=== PATIENT | male | born 1935 | race African-American/Black ===

== ENCOUNTER 2016-11-19 01:08 | Inpatient (IN) | payer MEDICARE, MEDICAID ==
[~2016-11-19] VITALS: Ht 177.8 cm; Wt 79.8 kg
[2016-11-19] MEDS ORDERED: PREDNISONE 20MG TABLET PO STA (01:55)
[2016-11-19] MEDS ORDERED: IPRATROPIUM BROMIDE (0.02%) 0.5MG/2.5ML NEB HHN STA (01:55)
[2016-11-19] MEDS ORDERED: ALBUTEROL (0.083%) 2.5MG/3ML NEB HHN STA (01:55)
[2016-11-19 02:18] LABS: HEMOGLOBIN. 12.9 g/dL (14.0-18.0); MEAN CORPUSCULAR HEMOGLOBIN 27.5 pg (28.0-32.0); MEAN CORPUSCULAR VOLUME 83.5 fL (80.0-94.0); MEAN PLATELET VOLUME 9.4 fl (7.4-10.4); PLATELET 224 x1000/uL (130-400); RED BLOOD CELL COUNT 4.67 mill/uL (4.7-6.1); RED CELL DISTRIBUTION WIDTH 15.2 % (11.6-14.6); WHITE BLOOD COUNT 5.1 x1000/uL (4.5-11.0)
[2016-11-19 02:22] LABS: DIFFERENTIAL COMMENT 1; INR 1.1; PROTHROMBIN TIME 11.8 sec
[2016-11-19 02:34] LABS: ALANINE AMINOTRANSFERASE 18 IU/L (13-61); ALBUMIN 3.4 g/dL (3.4-5.0); ANION GAP 13; CALCIUM 8.6 mg/dL (8.5-10.1); CARBON DIOXIDE 25 mEq/L (21-32); CHLORIDE 108 mEq/L (98-107); INDEX HEMOLYSI 1 (1-3); INDEX ICTERIC 1 (1-4); INDEX LIPEMIC 1 (1-3); NT PRO B-TYPE NATRIURETIC PEP 7418 pg/mL (5-125); TROPONIN I 0.23 ng/mL (0.00-0.04); UREA NITROGEN BLOOD 12 mg/dL (7-21); eGFR > 60 mL/min (>60)
[2016-11-19 02:44] LABS: BG BASE EXCESS -1.4 mmol/L (-2.0-2.0); BG CARBOXYHEMOGLOBIN 0.9 % (0.5-1.5); BG DEOXYHEMOGLOBIN 2.6 % (0.0-5.0); BG FRACTION INSPIRED OXYGEN 28; BG HCO3 ACT 21.4 mmol/L (22.0-26.0); BG METHEMOGLOBIN 0.2 % (0.0-1.5); BG OXYGEN SATURATION 97.4 % (92.0-98.5); BG OXYHEMOGLOBIN 96.3 % (94.0-97.0); BG PCO2 30.5 mmHg (35.0-45.0); BG PH 7.464 (7.350-7.450); BG PO2 91.8 mmHg (75.0-100.0); BG SAMPLE SITE LEFT RADIAL; BG TOTAL HEMOGLOBIN 12.9 g/dL (12.0-18.0); BG VENT MODE NASAL CANNULA
[2016-11-19 05:38] LABS: PLATELET ESTIMATE NORMAL
[2016-11-19 05:40] VITALS: BP 145/96
[2016-11-19 06:00] VITALS: BP 145/96
[2016-11-19] MEDS ORDERED: SIMV20TA6 PO (07:38)
[2016-11-19] MEDS ORDERED: TAMS0.4C31 PO (07:38)
[2016-11-19] MEDS ORDERED: AMLO10TA80 PO (07:38)
[2016-11-19] MEDS ORDERED: METO25TA6 PO (07:38)
[2016-11-19] MEDS ORDERED: CLOP75TA33 PO (07:38)
[2016-11-19] MEDS ORDERED: ASPI-1035 PO (07:38)
[2016-11-19 08:11] VITALS: BP 143/80
[2016-11-19] MEDS: METOPROLOL TARTRATE 25MG TABLET PO SCH (09:00)
[2016-11-19] MEDS: ASPIRIN 81MG EC TABLET PO SCH (09:56)
[2016-11-19] MEDS: CLOPIDOGREL 75MG TABLET PO SCH (09:56)
[2016-11-19] MEDS: AMLODIPINE 10MG TABLET PO SCH (09:56)
[2016-11-19] MEDS: TAMSULOSIN HCL 0.4MG SR CAPSULE PO SCH (09:57)
[2016-11-19 12:00] VITALS: BP 135/100
[2016-11-19] MEDS: FUROSEMIDE 40MG/4ML VIAL IVP SCH (13:12)
[2016-11-19] MEDS: PROMETHAZINE 5 ML/6.25 MG 118ML LIQ PO PRN ×2 (13:18→17:33)
[2016-11-19 16:15] VITALS: BP 126/94
[2016-11-19] MEDS ORDERED: LEVOFLOXACIN 500MG TABLET PO NR (17:00)
[2016-11-19 17:32] LABS: *AMPHETAMINES SCREEN URINE NEGATIVE (NEGATIVE); *BARBITURATES SCREEN URINE NEGATIVE (NEGATIVE); *BENZODIAZEPINES SCREEN URINE NEGATIVE (NEGATIVE); *COCAINE SCREEN URINE PRESUMTIVE POSITIVE (NEGATIVE); CANNABINOID URINE SCREEN NEGATIVE (NEGATIVE); ECSTASY MDMA SCREEN URINE NEGATIVE (NEGATIVE); METHADONE URINE SCREEN NEGATIVE (NEGATIVE); OPIATES URINE SCREEN NEGATIVE (NEGATIVE); PHENCYCLIDINE URINE SCREEN NEGATIVE (NEGATIVE)
[2016-11-19 20:00] VITALS: BP 120/90
[2016-11-19] MEDS ORDERED: ATORVASTATIN CALCIUM 10MG TABLET PO SCH (21:00)
[2016-11-19] MEDS ORDERED: MEDICATION NOT ON FORMULARY EA (Simvastatin 20 MG) PO SCH (21:00)
[2016-11-19 21:15] LABS: TROPONIN I 0.12 ng/mL (0.00-0.04)
[2016-11-19 21:21] LABS: THYROID STIMULATING HORMONE 0.28 uIU/mL (0.36-3.74)
[2016-11-20] VITALS: BP 127/93
[2016-11-20] MEDS: PROMETHAZINE 5 ML/6.25 MG 118ML LIQ PO PRN ×2 (00:16→06:49)
[2016-11-20 04:00] VITALS: BP 146/96
[2016-11-20 08:00] VITALS: BP 129/83
[2016-11-20] MEDS ORDERED: GUAIFENESIN/CODEINE 100-10MG/5ML UDC PO PRN (09:00)
[2016-11-20] MEDS: CLOPIDOGREL 75MG TABLET PO SCH (09:41)
[2016-11-20] MEDS: TAMSULOSIN HCL 0.4MG SR CAPSULE PO SCH (09:45)
[2016-11-20] MEDS: ASPIRIN 81MG EC TABLET PO SCH (09:46)
[2016-11-20] MEDS: AMLODIPINE 10MG TABLET PO SCH (09:47)
[2016-11-20] MEDS: FUROSEMIDE 40MG/4ML VIAL IVP SCH (09:47)
[2016-11-20] MEDS: METOPROLOL TARTRATE 25MG TABLET PO SCH (09:47)
[2016-11-20] MEDS: IPRATROPIUM/ALBUTEROL 0.5-3(2.5)MG/3ML NEB HHN SCH ×2 (09:52→11:42)
[2016-11-20] MEDS ORDERED: LEVOFLOXACIN 500MG TABLET PO SCH (11:00)
[2016-11-20] MEDS ORDERED: LEVOFLOXACIN 500MG PREMIX 100 ML IV SCH (11:00)
[2016-11-20 12:00] VITALS: BP 116/63
[2016-11-20] MEDS ORDERED: IPRATROPIUM/ALBUTEROL 0.5-3(2.5)MG/3ML NEB HHN SCH (13:00)
[2016-11-20 15:44] LABS: BASOPHILS % 1.3 % (0.0-2.0); DIFFERENTIAL COMMENT 0; EOSINOPHILS % 1.6 % (0.0-5.0); HEMOGLOBIN. 12.5 g/dL (14.0-18.0); MEAN CORPUSCULAR HEMOGLOBIN 27.4 pg (28.0-32.0); MEAN CORPUSCULAR HGB CONC 32.8 g/dL (31.0-37.0); MEAN CORPUSCULAR VOLUME 83.3 fL (80.0-94.0); MEAN PLATELET VOLUME 9.5 fl (7.4-10.4); MONOCYTES % 8.6 % (2.0-8.0); NEUTROPHILS % 68.5 % (40.0-76.0); PLATELET 216 x1000/uL (130-400); RED BLOOD CELL COUNT 4.56 mill/uL (4.7-6.1); RED CELL DISTRIBUTION WIDTH 14.7 % (11.6-14.6); WHITE BLOOD COUNT 5.9 x1000/uL (4.5-11.0)
[2016-11-20 16:00] VITALS: BP 124/88
[2016-11-20 16:10] LABS: ALANINE AMINOTRANSFERASE 17 IU/L (13-61); ALBUMIN 3.4 g/dL (3.4-5.0); ANION GAP 13; CARBON DIOXIDE 28 mEq/L (21-32); CHLORIDE 104 mEq/L (98-107); INDEX HEMOLYSI 1 (1-3); INDEX ICTERIC 1 (1-4); INDEX LIPEMIC 1 (1-3); UREA NITROGEN BLOOD 17 mg/dL (7-21); eGFR > 60 mL/min (>60)
[2016-11-20 17:08] VITALS: BP 124/88
== END 2016-11-20 17:25 | disposition home or self-care (01) | DRG 291 ==
LOC: ER 01:09 → 6WST 04:55
PROVIDERS: ADMIT Family Medicine; ATTEND Family Medicine
DX: I11.0 Hypertensive heart disease with heart failure (principal); J18.9 Pneumonia, unspecified organism; E78.5 Hyperlipidemia, unspecified; I25.10 Atherosclerotic heart disease of native coronary artery without angina pectoris; I50.9 Heart failure, unspecified; J44.9 Chronic obstructive pulmonary disease, unspecified; N40.0 Benign prostatic hyperplasia without lower urinary tract symptoms; N42.89 Other specified disorders of prostate; Z79.82 Long term (current) use of aspirin; Z95.0 Presence of cardiac pacemaker; I25.2 Old myocardial infarction; Z95.1 Presence of aortocoronary bypass graft; Z79.899 Other long term (current) drug therapy
CPT/HCPCS: 36415; 36600; 71010; 80053; 80061; 80305; 82375; 82805; 83036; 83605; 83880; 84443; 84484; 85025; 85379; 85610; 87040; 93005; 93306; 97162; 99285; J1940; J1956; J7040; J7512; J7611; J7620; Q0169

== ENCOUNTER 2017-03-04 22:44 | Inpatient (IN) | payer MEDICARE, MEDICAID ==
[~2017-03-04] VITALS: Ht 177.8 cm; Wt 73.5 kg
[~2017-03-04 22:44] MED LIST: AMLO10TA80 PO; ASPI-1158 PO; CLOP75TA33 PO; METO25TA6 PO; SIMV20TA6 PO; TAMS0.4C31 PO
[2017-03-04] MEDS ORDERED: NITROGLYCERIN 0.4MG TABLET SL SL PRN (23:00)
[2017-03-04] MEDS ORDERED: ASPIRIN 81MG TABLET PO ONE (23:00)
[2017-03-04 23:13] LABS: HEMATOCRIT. 38.4 % (42.0-52.0); HEMOGLOBIN. 12.7 g/dL (14.0-18.0); MEAN CORPUSCULAR HEMOGLOBIN 27.7 pg (28.0-32.0); MEAN CORPUSCULAR VOLUME 83.9 fL (80.0-94.0); MEAN PLATELET VOLUME 9.5 fl (7.4-10.4); PLATELET 132 x1000/uL (130-400); RED BLOOD CELL COUNT 4.58 mill/uL (4.7-6.1); RED CELL DISTRIBUTION WIDTH 15.9 % (11.6-14.6)
[2017-03-04 23:20] LABS: INR 1.1; PROTHROMBIN TIME 10.9 sec
[2017-03-04 23:25] LABS: CARBON DIOXIDE 26 mEq/L (21-32); CHLORIDE 108 mEq/L (98-107); TROPONIN I 0.03 ng/mL (0.00-0.04)
[2017-03-04 23:58] LABS: ATYPICAL LYMPHOCYTES 8
[2017-03-05] LABS: PLATELET ESTIMATE SLIGHTLY DECREASED
[2017-03-05] MEDS ORDERED: FUROSEMIDE 40MG/4ML VIAL IVP ONE (00:15)
[2017-03-05] MEDS ORDERED: DOCUSATE SODIUM 100MG CAPSULE PO PRN ×2 (16:15→16:30)
[2017-03-05] MEDS ORDERED: IPRATROPIUM/ALBUTEROL 0.5-3(2.5)MG/3ML NEB INH PRN ×2 (16:15→16:30)
[2017-03-05] MEDS ORDERED: ENOXAPARIN 40MG/0.4ML SYR SUBCUT SCH ×2 (16:15→17:00)
[2017-03-05] MEDS ORDERED: ONDANSETRON HCL 4MG/2ML VIAL IV PRN ×2 (16:15→16:30)
[2017-03-05] MEDS ORDERED: FUROSEMIDE 40MG/4ML VIAL IV SCH (16:15)
[2017-03-05] MEDS ORDERED: ACETAMINOPHEN 325MG TABLET PO PRN ×2 (16:15→16:30)
[2017-03-05] MEDS ORDERED: HYDROCODONE/ACETAMINOPHEN 5/325MG TABLET PO PRN ×2 (16:15→16:30)
[2017-03-05] MEDS: FUROSEMIDE 40MG/4ML VIAL IV SCH (17:00)
[2017-03-05] MEDS ORDERED: METOPROLOL TARTRATE 25MG TABLET PO SCH (17:00)
[2017-03-05] MEDS: METOPROLOL TARTRATE 25MG TABLET PO SCH (20:45)
[2017-03-05] MEDS ORDERED: ATORVASTATIN CALCIUM 10MG TABLET PO SCH (21:00)
[2017-03-05] MEDS ORDERED: MEDICATION NOT ON FORMULARY EA (Simvastatin 20 MG) PO SCH (21:00)
[2017-03-05 23:08] LABS: HEMATOCRIT. 40.6 % (42.0-52.0); HEMOGLOBIN. 13.5 g/dL (14.0-18.0); MEAN CORPUSCULAR HEMOGLOBIN 27.7 pg (28.0-32.0); MEAN CORPUSCULAR VOLUME 83.8 fL (80.0-94.0); MEAN PLATELET VOLUME 9.6 fl (7.4-10.4); PLATELET 130 x1000/uL (130-400); RED BLOOD CELL COUNT 4.85 mill/uL (4.7-6.1); RED CELL DISTRIBUTION WIDTH 15.6 % (11.6-14.6)
[2017-03-05 23:22] LABS: PLATELET ESTIMATE NORMAL
[2017-03-05 23:27] LABS: CARBON DIOXIDE 27 mEq/L (21-32); CHLORIDE 104 mEq/L (98-107); CREATINE KINASE 96 IU/L (39-308); CREATINE KINASE MB FRACTION 1.4 ng/mL (0.5-3.6); TROPONIN I 0.04 ng/mL (0.00-0.04)
[2017-03-06 06:50] LABS: HEMATOCRIT. 41.8 % (42.0-52.0); HEMOGLOBIN. 13.9 g/dL (14.0-18.0); MEAN CORPUSCULAR HEMOGLOBIN 27.9 pg (28.0-32.0); MEAN CORPUSCULAR VOLUME 84.2 fL (80.0-94.0); PLATELET 132 x1000/uL (130-400); RED BLOOD CELL COUNT 4.97 mill/uL (4.7-6.1); RED CELL DISTRIBUTION WIDTH 15.8 % (11.6-14.6)
[2017-03-06 07:08] LABS: CARBON DIOXIDE 28 mEq/L (21-32); CHLORIDE 104 mEq/L (98-107); CREATINE KINASE 78 IU/L (39-308); CREATINE KINASE MB FRACTION 1.2 ng/mL (0.5-3.6); HDL CHOLESTEROL 59 mg/dL (40-59); LDL CHOLESTEROL 44 mg/dL (5-100); TROPONIN I 0.03 ng/mL (0.00-0.04)
[2017-03-06] MEDS ORDERED: ASPIRIN 81MG EC TABLET PO SCH (09:00)
[2017-03-06] MEDS: METOPROLOL TARTRATE 25MG TABLET PO SCH ×2 (09:00→20:40)
[2017-03-06] MEDS: TAMSULOSIN HCL 0.4MG SR CAPSULE PO SCH (09:29)
[2017-03-06] MEDS: ASPIRIN 81MG EC TABLET PO SCH (09:30)
[2017-03-06] MEDS: AMLODIPINE 10MG TABLET PO SCH (09:30)
[2017-03-06] MEDS: CLOPIDOGREL 75MG TABLET PO SCH (09:30)
[2017-03-06] MEDS: FUROSEMIDE 40MG/4ML VIAL IV SCH (09:36)
[2017-03-06 14:30] LABS: CLARITY URINE CLEAR (CLEAR); COLOR URINE YELLOW (YELLOW); KETONES URINE NEGATIVE (NEGATIVE); LEUKOCYTE ESTERASE URINE NEGATIVE (NEGATIVE); NITRITE URINE NEGATIVE (NEGATIVE); OCCULT BLOOD URINE NEGATIVE (NEGATIVE); PH URINE 7.5 (4.5-8.0); PROTEIN URINE NEGATIVE (NEGATIVE); SPECIFIC GRAVITY URINE 1.008 (1.005-1.030); UROBILINOGEN URINE 0.2 E.U./dL (0.2-1.0)
[2017-03-06 15:03] LABS: *AMPHETAMINES SCREEN URINE NEGATIVE (NEGATIVE); *BARBITURATES SCREEN URINE NEGATIVE (NEGATIVE); *BENZODIAZEPINES SCREEN URINE NEGATIVE (NEGATIVE); *COCAINE SCREEN URINE PRESUMTIVE POSITIVE (NEGATIVE); CANNABINOID URINE SCREEN NEGATIVE (NEGATIVE); METHADONE URINE SCREEN NEGATIVE (NEGATIVE); OPIATES URINE SCREEN NEGATIVE (NEGATIVE); PHENCYCLIDINE URINE SCREEN NEGATIVE (NEGATIVE)
[2017-03-06 17:54] LABS: PLATELET ESTIMATE SLIGHTLY DECREASED
[2017-03-06] MEDS ORDERED: ATORVASTATIN CALCIUM 40MG TABLET PO SCH (21:00)
[2017-03-07] MEDS: ASPIRIN 81MG EC TABLET PO SCH (08:35)
[2017-03-07] MEDS: AMLODIPINE 10MG TABLET PO SCH (08:35)
[2017-03-07] MEDS: CLOPIDOGREL 75MG TABLET PO SCH (08:35)
[2017-03-07] MEDS: FUROSEMIDE 40MG/4ML VIAL IV SCH (08:35)
[2017-03-07] MEDS: METOPROLOL TARTRATE 25MG TABLET PO SCH (08:36)
[2017-03-07] MEDS: TAMSULOSIN HCL 0.4MG SR CAPSULE PO SCH (08:36)
[2017-03-07] MEDS ORDERED: ENOXAPARIN 40MG/0.4ML SYR SUBCUT SCH (09:00)
[2017-03-07 17:49] VITALS: BP 110/71
== END 2017-03-07 18:15 | disposition home health service (06) | DRG 291 ==
LOC: ER 22:57 → 5EST 03-05 01:48 → ENRESERV 03-05 14:39 → ER 03-05 16:00
PROVIDERS: ADMIT Hospitalist; ATTEND Hospitalist
DX: I11.0 Hypertensive heart disease with heart failure (principal); J96.00 Acute respiratory failure, unspecified whether with hypoxia or hypercapnia; J45.909 Unspecified asthma, uncomplicated; I50.41 Acute combined systolic (congestive) and diastolic (congestive) heart failure; E78.00 Pure hypercholesterolemia, unspecified; E11.9 Type 2 diabetes mellitus without complications; E78.5 Hyperlipidemia, unspecified; I25.10 Atherosclerotic heart disease of native coronary artery without angina pectoris; Z95.0 Presence of cardiac pacemaker; Z95.1 Presence of aortocoronary bypass graft; Z79.02 Long term (current) use of antithrombotics/antiplatelets; Z79.82 Long term (current) use of aspirin; Z79.899 Other long term (current) drug therapy; E87.70 Fluid overload, unspecified
CPT/HCPCS: 36415; 71010; 80048; 80053; 80061; 80305; 81003; 82550; 82553; 83880; 84484; 85025; 85610; 93005; 93306; 93970; 96374; 99285; J1650; J1940

== ENCOUNTER 2017-11-19 05:56 | Inpatient (IN) | payer MEDICARE, MEDICAID ==
[~2017-11-19] VITALS: Ht 177.8 cm; Wt 69.5 kg
[2017-11-19] MEDS ORDERED: ONDANSETRON HCL 4MG/2ML VIAL IV STA (06:29)
[2017-11-19] MEDS ORDERED: KETOROLAC 30MG/ML VIAL IV STA (06:29)
[2017-11-19 07:01] LABS: BASOPHILS % 0.1 % (0.0-2.0); HEMATOCRIT. 37.9 % (42.0-52.0); HEMOGLOBIN. 12.5 g/dL (14.0-18.0); LYMPHOCYTES % 21.9 % (20.0-50.0); MEAN CORPUSCULAR HEMOGLOBIN 28.8 pg (28.0-32.0); MEAN CORPUSCULAR VOLUME 87.3 fL (80.0-94.0); MEAN PLATELET VOLUME 10.4 fl (7.4-10.4); MONOCYTES % 13.1 % (2.0-8.0); NEUTROPHILS % 63.9 % (40.0-76.0); PLATELET 138 x1000/uL (130-400); RED BLOOD CELL COUNT 4.34 mill/uL (4.7-6.1); RED CELL DISTRIBUTION WIDTH 17.1 % (11.6-14.6)
[2017-11-19 07:08] LABS: INR 1.2; PROTHROMBIN TIME 12.6 sec (9.4-11.6)
[2017-11-19 07:17] LABS: CHLORIDE 108 mEq/L (98-107)
[2017-11-19] MEDS ORDERED: ASPIRIN 325MG EC TABLET PO ONE (08:15)
[2017-11-19] MEDS ORDERED: IPRATROPIUM/ALBUTEROL 0.5-3(2.5)MG/3ML NEB HHN PRN ×2 (15:00→18:15)
[2017-11-19 17:00] VITALS: BP 125/65
[2017-11-19] MEDS: FUROSEMIDE 40MG/4ML VIAL IVP SCH (17:12)
[2017-11-19] MEDS ORDERED: ONDANSETRON HCL 4MG/2ML VIAL IV PRN (18:15)
[2017-11-19] MEDS ORDERED: HYDROCODONE/ACETAMINOPHEN 5/325MG TABLET PO PRN (18:15)
[2017-11-19] MEDS ORDERED: MORPHINE SULFATE 2 MG/ML CPJ (NOT FOR IM USE) IV PRN (18:15)
[2017-11-19 19:31] LABS: CLARITY URINE CLEAR (CLEAR); COLOR URINE DARK YELLOW (YELLOW); KETONES URINE NEGATIVE (NEGATIVE); LEUKOCYTE ESTERASE URINE NEGATIVE (NEGATIVE); NITRITE URINE NEGATIVE (NEGATIVE); OCCULT BLOOD URINE NEGATIVE (NEGATIVE); PROTEIN URINE TRACE (NEGATIVE); UROBILINOGEN URINE 0.2 E.U./dL (0.2-1.0)
[2017-11-19 19:41] LABS: *AMPHETAMINES SCREEN URINE NEGATIVE (NEGATIVE); *BARBITURATES SCREEN URINE NEGATIVE (NEGATIVE); *BENZODIAZEPINES SCREEN URINE NEGATIVE (NEGATIVE); *COCAINE SCREEN URINE NEGATIVE (NEGATIVE); CANNABINOID URINE SCREEN NEGATIVE (NEGATIVE); METHADONE URINE SCREEN NEGATIVE (NEGATIVE); OPIATES URINE SCREEN NEGATIVE (NEGATIVE); PHENCYCLIDINE URINE SCREEN NEGATIVE (NEGATIVE)
[2017-11-19 20:00] VITALS: BP 97/52
[2017-11-19 20:27] LABS: MEAN CORPUSCULAR HEMOGLOBIN 28.2 pg (28.0-32.0); MEAN PLATELET VOLUME 11.5 fl (7.4-10.4); PLATELET 141 x1000/uL (130-400); RED BLOOD CELL COUNT 4.25 mill/uL (4.7-6.1); RED CELL DISTRIBUTION WIDTH 17.1 % (11.6-14.6)
[2017-11-19 20:36] LABS: CHLORIDE 111 mEq/L (98-107)
[2017-11-19 20:42] LABS: PREALBUMIN 28.6 mg/dL (20.0-40.0)
[2017-11-19] MEDS: GUAIFENESIN 600MG ER TABLET PO SCH (21:02)
[2017-11-19] MEDS: ATORVASTATIN CALCIUM 40MG TABLET PO SCH (21:05)
[2017-11-19 21:19] LABS: PLATELET ESTIMATE NORMAL
[2017-11-20] VITALS (7 sets, daily range): BP systolic 85–98; BP diastolic 51–58
[2017-11-20] MEDS: IPRATROPIUM/ALBUTEROL 0.5-3(2.5)MG/3ML NEB HHN SCH ×4 (00:57→21:07)
[2017-11-20 05:54] LABS: HEMATOCRIT. 34.5 % (42.0-52.0); HEMOGLOBIN. 11.2 g/dL (14.0-18.0); MEAN CORPUSCULAR HEMOGLOBIN 28.1 pg (28.0-32.0); MEAN CORPUSCULAR VOLUME 86.5 fL (80.0-94.0); MEAN PLATELET VOLUME 10.6 fl (7.4-10.4); PLATELET 122 x1000/uL (130-400); RED BLOOD CELL COUNT 3.98 mill/uL (4.7-6.1); RED CELL DISTRIBUTION WIDTH 17.6 % (11.6-14.6)
[2017-11-20] MEDS ORDERED: ASPIRIN 81MG EC TABLET PO SCH (09:00)
[2017-11-20] MEDS ORDERED: AMLODIPINE 10MG TABLET PO SCH (09:00)
[2017-11-20] MEDS ORDERED: CLOPIDOGREL 75MG TABLET PO SCH (09:00)
[2017-11-20] MEDS: FUROSEMIDE 40MG/4ML VIAL IVP SCH (09:24)
[2017-11-20] MEDS: GUAIFENESIN 600MG ER TABLET PO SCH ×2 (09:24→21:50)
[2017-11-20] MEDS: TAMSULOSIN HCL 0.4MG SR CAPSULE PO SCH (09:26)
[2017-11-20 16:18] LABS: PLATELET ESTIMATE DECREASED
[2017-11-20] MEDS ORDERED: AMLODIPINE 2.5MG TABLET PO SCH (21:00)
[2017-11-20] MEDS: ATORVASTATIN CALCIUM 40MG TABLET PO SCH (21:50)
[2017-11-21] VITALS: BP 98/54
[2017-11-21] MEDS: IPRATROPIUM/ALBUTEROL 0.5-3(2.5)MG/3ML NEB HHN SCH ×4 (01:14→20:36)
[2017-11-21] MEDS: ACETAMINOPHEN 325MG TABLET PO PRN ×2 (02:13→22:03)
[2017-11-21 04:00] VITALS: BP 100/54
[2017-11-21 06:15] LABS: HEMATOCRIT. 34.2 % (42.0-52.0); HEMOGLOBIN. 11.1 g/dL (14.0-18.0); MEAN CORPUSCULAR HEMOGLOBIN 28.4 pg (28.0-32.0); MEAN CORPUSCULAR VOLUME 87.3 fL (80.0-94.0); PLATELET 113 x1000/uL (130-400); RED BLOOD CELL COUNT 3.92 mill/uL (4.7-6.1); RED CELL DISTRIBUTION WIDTH 17.1 % (11.6-14.6)
[2017-11-21 06:42] LABS: CHLORIDE 105 mEq/L (98-107)
[2017-11-21 06:50] LABS: PHOSPHORUS 4.2 mg/dL (2.5-4.9)
[2017-11-21 08:00] VITALS: BP 96/58
[2017-11-21] MEDS: GUAIFENESIN 600MG ER TABLET PO SCH ×2 (08:41→20:14)
[2017-11-21] MEDS: TAMSULOSIN HCL 0.4MG SR CAPSULE PO SCH (08:44)
[2017-11-21] MEDS ORDERED: BISACODYL 5MG TABLET PO PRN (09:30)
[2017-11-21 12:00] VITALS: BP 103/61
[2017-11-21 12:09] LABS: PLATELET ESTIMATE DECREASED
[2017-11-21] MEDS ORDERED: LIDOCAINE HCL 1% 20ML VIAL (Pyxis) INJ ONE (13:55)
[2017-11-21] MEDS ORDERED: SODIUM BICARBONATE 4% (2.4MEQ) 5ML VIAL IV ONE (13:55)
[2017-11-21] MEDS ORDERED: IOHEXOL-350 100 ML BOTTLE ONE (15:06)
[2017-11-21 16:00] VITALS: BP 111/61
[2017-11-21] MEDS: DOCUSATE SODIUM 100MG CAPSULE PO SCH ×2 (17:00→18:28)
[2017-11-21] MEDS: CARVEDILOL 3.125 MG TABLET PO SCH ×2 (18:27→20:14)
[2017-11-21 20:00] VITALS: BP 114/54
[2017-11-21] MEDS: ATORVASTATIN CALCIUM 40MG TABLET PO SCH (20:14)
[2017-11-21] MEDS ORDERED: ATORVASTATIN CALCIUM 40MG TABLET PO SCH (21:00)
[2017-11-22] VITALS: BP 98/55
[2017-11-22] MEDS: IPRATROPIUM/ALBUTEROL 0.5-3(2.5)MG/3ML NEB HHN SCH ×4 (00:55→21:18)
[2017-11-22 04:00] VITALS: BP 108/63
[2017-11-22] MEDS: ACETAMINOPHEN 325MG TABLET PO PRN (04:13)
[2017-11-22 07:47] VITALS: BP 109/66
[2017-11-22 07:56] LABS: HEMATOCRIT. 33.6 % (42.0-52.0); HEMOGLOBIN. 11.1 g/dL (14.0-18.0); MEAN CORPUSCULAR HEMOGLOBIN 28.5 pg (28.0-32.0); MEAN CORPUSCULAR VOLUME 86.5 fL (80.0-94.0); MEAN PLATELET VOLUME 10.8 fl (7.4-10.4); PLATELET 108 x1000/uL (130-400); RED BLOOD CELL COUNT 3.88 mill/uL (4.7-6.1)
[2017-11-22 08:43] LABS: CHLORIDE 106 mEq/L (98-107)
[2017-11-22] MEDS: TAMSULOSIN HCL 0.4MG SR CAPSULE PO SCH (08:55)
[2017-11-22] MEDS: DOCUSATE SODIUM 100MG CAPSULE PO SCH ×2 (08:55→17:25)
[2017-11-22] MEDS: GUAIFENESIN 600MG ER TABLET PO SCH ×2 (08:55→20:35)
[2017-11-22] MEDS: CARVEDILOL 3.125 MG TABLET PO SCH ×2 (08:56→20:35)
[2017-11-22] MEDS ORDERED: FUROSEMIDE 40MG/4ML VIAL IVP NR (10:30)
[2017-11-22 12:30] VITALS: BP 105/65
[2017-11-22] MEDS: LISINOPRIL 2.5MG TABLET PO SCH (12:58)
[2017-11-22 14:43] LABS: ATYPICAL LYMPHOCYTES 1; PLATELET ESTIMATE DECREASED
[2017-11-22 16:19] VITALS: BP 129/80
[2017-11-22 20:00] VITALS: BP 104/47
[2017-11-22] MEDS: ATORVASTATIN CALCIUM 40MG TABLET PO SCH (20:35)
[2017-11-23] VITALS: BP 123/60
[2017-11-23] MEDS: IPRATROPIUM/ALBUTEROL 0.5-3(2.5)MG/3ML NEB HHN SCH ×2 (02:36→13:06)
[2017-11-23] MEDS: ACETAMINOPHEN 325MG TABLET PO PRN (03:10)
[2017-11-23 04:00] VITALS: BP 100/62
[2017-11-23 07:27] VITALS: BP 95/51
[2017-11-23 07:43] LABS: HEMATOCRIT. 32.5 % (42.0-52.0); HEMOGLOBIN. 10.6 g/dL (14.0-18.0); MEAN CORPUSCULAR HEMOGLOBIN 28.3 pg (28.0-32.0); MEAN CORPUSCULAR VOLUME 86.6 fL (80.0-94.0); MEAN PLATELET VOLUME 11.2 fl (7.4-10.4); PLATELET 107 x1000/uL (130-400); RED BLOOD CELL COUNT 3.75 mill/uL (4.7-6.1); RED CELL DISTRIBUTION WIDTH 16.5 % (11.6-14.6)
[2017-11-23 08:16] LABS: CHLORIDE 105 mEq/L (98-107)
[2017-11-23] MEDS: LISINOPRIL 2.5MG TABLET PO SCH (08:18)
[2017-11-23] MEDS: GUAIFENESIN 600MG ER TABLET PO SCH (08:18)
[2017-11-23] MEDS: CARVEDILOL 3.125 MG TABLET PO SCH (08:19)
[2017-11-23] MEDS: TAMSULOSIN HCL 0.4MG SR CAPSULE PO SCH (08:20)
[2017-11-23] MEDS: DOCUSATE SODIUM 100MG CAPSULE PO SCH (08:20)
[2017-11-23 11:53] VITALS: BP 105/55
[2017-11-23] MEDS ORDERED: COR3 PO (12:21)
[2017-11-23] MEDS ORDERED: LISI2.5T47 PO (12:21)
[2017-11-23] MEDS ORDERED: DOCU-138 PO (12:21)
[2017-11-23 14:12] VITALS: BP 105/55
[2017-11-23 14:31] VITALS: BP 119/78
[2017-11-23 20:26] LABS: ATYPICAL LYMPHOCYTES 1; PLATELET ESTIMATE DECREASED
== END 2017-11-23 16:03 | disposition home or self-care (01) | DRG 280 ==
LOC: ER 06:06 → 5WST 08:25 → EDBEDREQ 08:29 → EDBEDREQTM 08:29 → ENRESERV 16:10
PROVIDERS: ADMIT Internal Medicine; ATTEND Internal Medicine
PROC: 02HV33Z Insertion of Infusion Device into Superior Vena Cava, Percutaneous Approach (ICD-10-PCS; principal; 2017-11-21)
PROC: B548ZZA Ultrasonography of Superior Vena Cava, Guidance (ICD-10-PCS; 2017-11-21)
PROC: B5181ZA Fluoroscopy of Superior Vena Cava using Low Osmolar Contrast, Guidance (ICD-10-PCS; 2017-11-21)
DX: I21.4 Non-ST elevation (NSTEMI) myocardial infarction (principal); I50.23 Acute on chronic systolic (congestive) heart failure; J96.00 Acute respiratory failure, unspecified whether with hypoxia or hypercapnia; I27.20 Pulmonary hypertension, unspecified; C34.90 Malignant neoplasm of unspecified part of unspecified bronchus or lung; D64.9 Anemia, unspecified; J44.9 Chronic obstructive pulmonary disease, unspecified; I11.0 Hypertensive heart disease with heart failure; E11.9 Type 2 diabetes mellitus without complications; E78.00 Pure hypercholesterolemia, unspecified; E78.5 Hyperlipidemia, unspecified; I25.10 Atherosclerotic heart disease of native coronary artery without angina pectoris; I25.5 Ischemic cardiomyopathy; N40.0 Benign prostatic hyperplasia without lower urinary tract symptoms; Z95.0 Presence of cardiac pacemaker; Z95.1 Presence of aortocoronary bypass graft; Z79.82 Long term (current) use of aspirin; Z79.899 Other long term (current) drug therapy
CPT/HCPCS: 36415; 36569; 71045; 71250; 71275; 74174; 76705; 76937; 77001; 80048; 80053; 80305; 81003; 83690; 83735; 83880; 84100; 84134; 84153; 84484; 85025; 85610; 87070; 93005; 93306; 94640; 96374; 96375; 97116; 97162; 99285; C1725; J1885; J1940; J2405; J3490; J7030; J7620; Q9967; A4315

== ENCOUNTER → 2017-12-18 | Outpatient (CLI) | payer MEDICARE, MEDICAID ==
[~2017-12-18] MED LIST changes: -AMLO10TA80 PO; -ASPI-1158 PO; -CLOP75TA33 PO; +COR3 PO; +DOCU-138 PO; +IOHEXOL-300 100 ML BOTTLE ONE; +LISI2.5T47 PO; -METO25TA6 PO
== END | disposition home or self-care (01) ==
LOC: CT 08:35
PROVIDERS: ATTEND Radiology Radiation Oncology
DX: J90 Pleural effusion, not elsewhere classified (principal); R18.8 Other ascites; I51.7 Cardiomegaly; I49.9 Cardiac arrhythmia, unspecified; I10 Essential (primary) hypertension; J44.9 Chronic obstructive pulmonary disease, unspecified; E11.9 Type 2 diabetes mellitus without complications; E78.00 Pure hypercholesterolemia, unspecified; Z79.82 Long term (current) use of aspirin; Z95.0 Presence of cardiac pacemaker
CPT/HCPCS: 71270; Q9967

== ENCOUNTER → 2018-01-09 | Outpatient (CLI) | payer MEDICARE, MEDICAID | END | disposition home or self-care (01) | LOC: CT 08:13 | PROVIDERS: ATTEND Internal Medicine Critical Care Medicine | DX: I51.7 Cardiomegaly (principal); I70.8 Atherosclerosis of other arteries | CPT/HCPCS: 71260; Q9967 ==

== ENCOUNTER 2018-02-21 22:09 | Emergency (ER) | payer MEDICARE, MEDICAID ==
[~2018-02-21] VITALS: Ht 177.8 cm; Wt 64.0 kg
[~2018-02-21 22:09] MED LIST changes: +FURO-151 MT; -IOHEXOL-300 100 ML BOTTLE ONE; +LEVO500T2 MT; -LISI2.5T47 PO
[2018-02-22 00:01] VITALS: BP 121/71
== END 2018-02-22 01:22 | disposition home or self-care (01) ==
LOC: ER 22:09
DX: Z45.2 Encounter for adjustment and management of vascular access device (principal); T82.838A Hemorrhage due to vascular prosthetic devices, implants and grafts, initial encounter; I11.0 Hypertensive heart disease with heart failure; I50.9 Heart failure, unspecified; Z95.0 Presence of cardiac pacemaker; Z79.899 Other long term (current) drug therapy
CPT/HCPCS: 99283

== ENCOUNTER 2018-03-14 12:16 | Inpatient (IN) | payer MEDICARE, MEDICAID ==
[~2018-03-14] VITALS: Ht 170.2 cm; Wt 50.8 kg
[2018-03-14 13:00] VITALS: BP 136/61
[2018-03-14] MEDS ORDERED: MAGNESIUM/ALUMINUM HYDROXIDE/SIMETHICONE 30ML UDC PO PRN (13:00)
[2018-03-14] MEDS ORDERED: DOCUSATE SODIUM 100MG CAPSULE PO PRN (13:00)
[2018-03-14] MEDS ORDERED: LORAZEPAM 0.5MG TABLET PO PRN (13:00)
[2018-03-14] MEDS ORDERED: ACETAMINOPHEN 325MG TABLET PO PRN (13:00)
[2018-03-14] MEDS ORDERED: CLONIDINE 0.1MG TABLET PO PRN (13:00)
[2018-03-14] MEDS ORDERED: IPRATROPIUM/ALBUTEROL 0.5-3(2.5)MG/3ML NEB INH PRN (13:00)
[2018-03-14] MEDS ORDERED: NA PHOS,M-B/NA PHOS,DI-BA ENEMA 118ML PR PRN (13:00)
[2018-03-14] MEDS ORDERED: ONDANSETRON HCL 4MG/2ML VIAL IV PRN (13:00)
[2018-03-14] MEDS ORDERED: DIATR MEGLU/DIATRIZOATE SOLN 30ML PO SCH ×2 (13:30→17:00)
[2018-03-14 15:45] LABS: BASOPHILS % 0.1 % (0.0-2.0); EOSINOPHILS % 0.9 % (0.0-5.0); HEMATOCRIT. 36.1 % (42.0-52.0); HEMOGLOBIN. 11.9 g/dL (14.0-18.0); LYMPHOCYTES % 7.9 % (20.0-50.0); MEAN CORPUSCULAR HEMOGLOBIN 28.5 pg (28.0-32.0); MEAN CORPUSCULAR VOLUME 86.6 fL (80.0-94.0); MEAN PLATELET VOLUME 10.5 fl (7.4-10.4); MONOCYTES % 9.6 % (2.0-8.0); NEUTROPHILS % 81.5 % (40.0-76.0); PLATELET 144 x1000/uL (130-400); RED BLOOD CELL COUNT 4.17 mill/uL (4.7-6.1); RED CELL DISTRIBUTION WIDTH 20.6 % (11.6-14.6)
[2018-03-14 15:49] LABS: CHLORIDE 104 mEq/L (98-107)
[2018-03-14 15:58] LABS: CREATINE KINASE 122 IU/L (39-308)
[2018-03-14 16:02] VITALS: BP 136/61
[2018-03-14 16:11] LABS: CARCINO EMBRYONIC ANTIGEN 1.8 ng/ml
[2018-03-14 16:22] LABS: HEPATITIS B SURFACE ANTIGEN NEGATIVE
[2018-03-14 16:50] LABS: HEPATITIS B CORE AB IGM NEGATIVE
[2018-03-14 16:51] LABS: HEPATITIS A AB IGM NEGATIVE (NEGATIVE)
[2018-03-14] MEDS ORDERED: DIATR MEGLU/DIATRIZOATE SOLN 30ML PO NR (17:00)
[2018-03-14] MEDS ORDERED: DEXT 5%/0.45% NACL 1000ML 1,000 ML IV ONE (17:00)
[2018-03-14 17:14] LABS: CLARITY URINE CLEAR (CLEAR); COLOR URINE DARK YELLOW (YELLOW); KETONES URINE NEGATIVE (NEGATIVE); LEUKOCYTE ESTERASE URINE TRACE (NEGATIVE); NITRITE URINE NEGATIVE (NEGATIVE); OCCULT BLOOD URINE NEGATIVE (NEGATIVE); PROTEIN URINE 2+ (NEGATIVE); SPECIFIC GRAVITY URINE 1.013 (1.005-1.030)
[2018-03-14] MEDS ORDERED: PNEUMOCOCCAL 23-VAL P-SAC VAC 0.5 ML IM ONE (17:15)
[2018-03-14] MEDS ORDERED: DIATR MEGLU/DIATRIZOATE SOLN 30ML PO ONE (18:00)
[2018-03-14] MEDS ORDERED: BUDESONIDE 0.5MG/2ML NEB HHN SCH (18:00)
[2018-03-14] MEDS ORDERED: BISACODYL 5MG TABLET PO PRN (19:45)
[2018-03-14 20:00] VITALS: BP 105/66
[2018-03-14] MEDS: IPRATROPIUM/ALBUTEROL 0.5-3(2.5)MG/3ML NEB HHN SCH (20:04)
[2018-03-14] MEDS ORDERED: CARVEDILOL 3.125 MG TABLET PO SCH (21:00)
[2018-03-14] MEDS ORDERED: AMLODIPINE 2.5MG TABLET PO SCH (21:00)
[2018-03-14] MEDS ORDERED: ATORVASTATIN CALCIUM 20MG TABLET PO SCH (21:00)
[2018-03-14 21:14] LABS: CREATINE KINASE 106 IU/L (39-308)
[2018-03-14] MEDS: DOCUSATE SODIUM 100MG CAPSULE PO SCH (23:49)
[2018-03-14 23:54] LABS: CREATINE KINASE MB FRACTION 3.5 ng/mL (0.5-3.6)
[2018-03-15] MEDS: IPRATROPIUM/ALBUTEROL 0.5-3(2.5)MG/3ML NEB HHN SCH (00:36)
[2018-03-15 03:30] VITALS: BP 108/66
[2018-03-15] MEDS ORDERED: MORPHINE SULFATE 4 MG/ML CPJ (NOT FOR IM USE) IV PRN (03:30)
[2018-03-15 03:32] VITALS: BP 108/66
[2018-03-15] MEDS ORDERED: FUROSEMIDE 40MG/4ML VIAL IVP NR (08:30)
[2018-03-15] MEDS ORDERED: LEVOFLOXACIN 250MG PREMIX 50 ML IV SCH (08:45)
[2018-03-15 08:47] LABS: BG BASE EXCESS -0.5 mmol/L (-2.0-2.0); BG CARBOXYHEMOGLOBIN 0.9 % (0.5-1.5); BG DEOXYHEMOGLOBIN 1.4 % (0.0-5.0); BG FRACTION INSPIRED OXYGEN 32; BG METHEMOGLOBIN 0.3 % (0.0-1.5); BG OXYGEN SATURATION 98.6 % (92.0-98.5); BG OXYHEMOGLOBIN 97.4 % (94.0-97.0); BG PCO2 22.7 mmHg (35.0-45.0); BG PH 7.562 (7.350-7.450); BG PO2 113.4 mmHg (75.0-100.0); BG SAMPLE SITE RIGHT BRACHIAL; BG TOTAL HEMOGLOBIN 12.8 g/dL (12.0-18.0); BG VENT MODE NASAL CANNULA
[2018-03-15] MEDS ORDERED: FUROSEMIDE 40MG/4ML VIAL IVP SCH (09:00)
[2018-03-15] MEDS ORDERED: CLOPIDOGREL 75MG TABLET PO SCH (09:00)
[2018-03-15] MEDS ORDERED: ASPIRIN 81MG TABLET PO SCH (09:00)
[2018-03-15] MEDS ORDERED: MEGESTROL ACETATE 400 MG/10 ML UDC PO SCH (09:00)
[2018-03-15] MEDS: DOCUSATE SODIUM 100MG CAPSULE PO SCH (09:26)
[2018-03-15] MEDS ORDERED: LEVOFLOXACIN 500MG PREMIX 100 ML IV SCH (11:00)
[2018-03-15 13:13] LABS: BASOPHILS % 0.2 % (0.0-2.0); EOSINOPHILS % 1.4 % (0.0-5.0); HEMATOCRIT. 39.1 % (42.0-52.0); HEMOGLOBIN. 12.4 g/dL (14.0-18.0); LYMPHOCYTES % 10.3 % (20.0-50.0); MEAN CORPUSCULAR HEMOGLOBIN 28.4 pg (28.0-32.0); MEAN CORPUSCULAR VOLUME 89.7 fL (80.0-94.0); MEAN PLATELET VOLUME 10.9 fl (7.4-10.4); MONOCYTES % 12.6 % (2.0-8.0); NEUTROPHILS % 75.5 % (40.0-76.0); PLATELET 130 x1000/uL (130-400); RED BLOOD CELL COUNT 4.35 mill/uL (4.7-6.1); RED CELL DISTRIBUTION WIDTH 22.6 % (11.6-14.6)
[2018-03-16 14:10] LABS: HIV SCREEN 4G Non Reactive (Non Reactive)
[2018-03-16 19:05] LABS: ANTI-NUCLEAR ANTIBODIES DIRECT Negative (Negative)
[2018-03-17 07:08] LABS: COMPLEMENT C3 61 mg/dL (82-167)
[2018-03-17] MEDS ORDERED: LEVOFLOXACIN 250MG PREMIX 50 ML IV SCH (11:00)
== END 2018-03-15 10:07 | DRG 947 ==
PROVIDERS: ADMIT Psychiatry & Neurology Neurology; ATTEND Internal Medicine Critical Care Medicine
DX: R53.81 Other malaise (principal); E43 Unspecified severe protein-calorie malnutrition; I50.43 Acute on chronic combined systolic (congestive) and diastolic (congestive) heart failure; I13.0 Hypertensive heart and chronic kidney disease with heart failure and stage 1 through stage 4 chronic kidney disease, or unspecified chronic kidney disease; R64 Cachexia; N17.9 Acute kidney failure, unspecified; Z68.1 Body mass index [BMI] 19.9 or less, adult; J90 Pleural effusion, not elsewhere classified; I25.5 Ischemic cardiomyopathy; I25.10 Atherosclerotic heart disease of native coronary artery without angina pectoris; E78.5 Hyperlipidemia, unspecified; N40.0 Benign prostatic hyperplasia without lower urinary tract symptoms; I27.20 Pulmonary hypertension, unspecified; J45.909 Unspecified asthma, uncomplicated; R62.7 Adult failure to thrive; N18.9 Chronic kidney disease, unspecified; E11.22 Type 2 diabetes mellitus with diabetic chronic kidney disease; I08.2 Rheumatic disorders of both aortic and tricuspid valves; Z95.1 Presence of aortocoronary bypass graft; Z95.0 Presence of cardiac pacemaker; Z99.3 Dependence on wheelchair; I25.2 Old myocardial infarction; Z99.81 Dependence on supplemental oxygen; Z79.899 Other long term (current) drug therapy
CPT/HCPCS: 36415; 36600; 71045; 71250; 74176; 76770; 80048; 80053; 81003; 82105; 82375; 82378; 82550; 82553; 82805; 83605; 84443; 84484; 85025; 86038; 86160; 86301; 86705; 86709; 86803; 87040; 87086; 87186; 87340; 92523; 93005; 93970; 97162; J1940; J1956; J2270; J7620; J7626; Q9963

== ENCOUNTER 2018-03-15 10:56 | Inpatient (IN) | payer MEDICARE, MEDICAID ==
[~2018-03-15] VITALS: Ht 177.8 cm; Wt 58.1 kg
[2018-03-15] VITALS (20 sets, daily range): BP systolic 94–110; BP diastolic 52–78
[2018-03-15] MEDS ORDERED: DOPAMINE 800MG PREMIX 250 ML IV SCH (11:15)
[2018-03-15] MEDS ORDERED: DOBUTAMINE 250MG PREMIX 250 ML IV SCH ×2 (11:15→13:00)
[2018-03-15] MEDS ORDERED: ALUMINUM HYDROXIDE 120ML BOTTLE PO PRN (11:45)
[2018-03-15] MEDS ORDERED: CLONIDINE 0.1MG TABLET PO PRN (11:45)
[2018-03-15] MEDS ORDERED: ACETAMINOPHEN 325MG TABLET PO PRN (11:45)
[2018-03-15] MEDS ORDERED: IPRATROPIUM/ALBUTEROL 0.5-3(2.5)MG/3ML NEB HHN PRN (11:45)
[2018-03-15] MEDS ORDERED: ONDANSETRON HCL 4MG/2ML VIAL IV PRN (11:45)
[2018-03-15] MEDS ORDERED: LEVOFLOXACIN 250MG PREMIX 50 ML IV SCH (11:45)
[2018-03-15] MEDS ORDERED: HEPARIN 1000 UNITS/ML 10ML ONE (11:47)
[2018-03-15] MEDS: DOPAMINE 800MG PREMIX 250 ML IV SCH (13:07)
[2018-03-15] MEDS: ASPIRIN 81MG EC TABLET PO SCH (13:12)
[2018-03-15] MEDS: DOBUTAMINE HCL 250 MG in DEXT 5% WATER 230 ML IV SCH (14:00)
[2018-03-15] MEDS ORDERED: LEVOFLOXACIN 500MG PREMIX 100 ML IV SCH (15:00)
[2018-03-15 15:40] LABS: BASOPHILS % 0.2 % (0.0-2.0); EOSINOPHILS % 1.2 % (0.0-5.0); HEMATOCRIT. 35.7 % (42.0-52.0); HEMOGLOBIN. 11.7 g/dL (14.0-18.0); LYMPHOCYTES % 7.8 % (20.0-50.0); MEAN CORPUSCULAR HEMOGLOBIN 28.3 pg (28.0-32.0); MEAN CORPUSCULAR VOLUME 86.7 fL (80.0-94.0); MEAN PLATELET VOLUME 10.6 fl (7.4-10.4); MONOCYTES % 6.3 % (2.0-8.0); NEUTROPHILS % 84.5 % (40.0-76.0); PLATELET 123 x1000/uL (130-400); RED BLOOD CELL COUNT 4.12 mill/uL (4.7-6.1); RED CELL DISTRIBUTION WIDTH 20.4 % (11.6-14.6)
[2018-03-15 15:45] LABS: INR 1.6; PARTIAL THROMBOPLASTIN TIME 39.9 sec (23.4-31.0); PROTHROMBIN TIME 16.7 sec (9.4-11.6)
[2018-03-15] MEDS: DOCUSATE SODIUM 100MG CAPSULE PO SCH (17:00)
[2018-03-15] MEDS: IPRATROPIUM/ALBUTEROL 0.5-3(2.5)MG/3ML NEB HHN SCH (20:14)
[2018-03-15] MEDS: BUDESONIDE 0.5MG/2ML NEB HHN SCH (20:14)
[2018-03-15] MEDS: ATORVASTATIN CALCIUM 20MG TABLET PO SCH (20:42)
[2018-03-16] VITALS (24 sets, daily range): BP systolic 83–105; BP diastolic 49–81
[2018-03-16] MEDS: IPRATROPIUM/ALBUTEROL 0.5-3(2.5)MG/3ML NEB HHN SCH ×6 (00:25→19:45)
[2018-03-16] MEDS: DOBUTAMINE HCL 250 MG in DEXT 5% WATER 230 ML IV SCH ×2 (01:38→15:40)
[2018-03-16 07:09] LABS: HEMATOCRIT. 34.3 % (42.0-52.0); HEMOGLOBIN. 11.3 g/dL (14.0-18.0); MEAN CORPUSCULAR HEMOGLOBIN 28.6 pg (28.0-32.0); MEAN PLATELET VOLUME 11.1 fl (7.4-10.4); PLATELET 132 x1000/uL (130-400); RED BLOOD CELL COUNT 3.95 mill/uL (4.7-6.1); RED CELL DISTRIBUTION WIDTH 21.2 % (11.6-14.6)
[2018-03-16] MEDS: BUDESONIDE 0.5MG/2ML NEB HHN SCH ×2 (08:16→19:45)
[2018-03-16] MEDS: ASPIRIN 81MG EC TABLET PO SCH (08:26)
[2018-03-16] MEDS: MEGESTROL ACETATE 400 MG/10 ML UDC PO SCH (08:26)
[2018-03-16] MEDS: DOCUSATE SODIUM 100MG CAPSULE PO SCH ×2 (08:26→16:56)
[2018-03-16] MEDS ORDERED: LEVOFLOXACIN 250MG PREMIX 50 ML IV SCH (11:00)
[2018-03-16 14:19] LABS: PLATELET ESTIMATE NORMAL
[2018-03-16] MEDS: DOPAMINE 800MG PREMIX 250 ML IV SCH (15:39)
[2018-03-16] MEDS: ATORVASTATIN CALCIUM 20MG TABLET PO SCH (20:45)
[2018-03-16] MEDS: LORAZEPAM 0.5MG TABLET PO PRN (21:52)
[2018-03-17] VITALS (19 sets, daily range): BP systolic 94–110; BP diastolic 47–73
[2018-03-17] MEDS: IPRATROPIUM/ALBUTEROL 0.5-3(2.5)MG/3ML NEB HHN SCH ×6 (00:12→20:56)
[2018-03-17] MEDS: DOBUTAMINE HCL 250 MG in DEXT 5% WATER 230 ML IV SCH ×2 (04:07→17:46)
[2018-03-17 06:38] LABS: HEMATOCRIT. 33.2 % (42.0-52.0); MEAN CORPUSCULAR HEMOGLOBIN 28.3 pg (28.0-32.0); MEAN CORPUSCULAR VOLUME 85.9 fL (80.0-94.0); MEAN PLATELET VOLUME 10.3 fl (7.4-10.4); PLATELET 118 x1000/uL (130-400); RED BLOOD CELL COUNT 3.87 mill/uL (4.7-6.1)
[2018-03-17] MEDS: MEGESTROL ACETATE 400 MG/10 ML UDC PO SCH (08:36)
[2018-03-17] MEDS: ASPIRIN 81MG EC TABLET PO SCH (08:36)
[2018-03-17] MEDS: DOCUSATE SODIUM 100MG CAPSULE PO SCH ×2 (08:36→17:00)
[2018-03-17] MEDS: FUROSEMIDE 40MG TABLET PO SCH (08:36)
[2018-03-17] MEDS: BUDESONIDE 0.5MG/2ML NEB HHN SCH ×2 (09:01→20:56)
[2018-03-17 10:28] LABS: PLATELET ESTIMATE DECREASED
[2018-03-17] MEDS: LEVOFLOXACIN 250MG PREMIX 50 ML IV SCH (17:46)
[2018-03-17] MEDS: ATORVASTATIN CALCIUM 20MG TABLET PO SCH (21:44)
[2018-03-18] VITALS (21 sets, daily range): BP systolic 92–111; BP diastolic 54–76
[2018-03-18] MEDS: IPRATROPIUM/ALBUTEROL 0.5-3(2.5)MG/3ML NEB HHN SCH ×6 (00:40→20:41)
[2018-03-18] MEDS: LORAZEPAM 0.5MG TABLET PO PRN ×2 (01:14→20:44)
[2018-03-18] MEDS: DOBUTAMINE HCL 250 MG in DEXT 5% WATER 230 ML IV SCH (05:07)
[2018-03-18 05:35] LABS: HEMATOCRIT. 31.8 % (42.0-52.0); HEMOGLOBIN. 10.7 g/dL (14.0-18.0); MEAN CORPUSCULAR HEMOGLOBIN 28.5 pg (28.0-32.0); MEAN CORPUSCULAR VOLUME 84.8 fL (80.0-94.0); MEAN PLATELET VOLUME 10.3 fl (7.4-10.4); PLATELET 111 x1000/uL (130-400); RED BLOOD CELL COUNT 3.76 mill/uL (4.7-6.1); RED CELL DISTRIBUTION WIDTH 21.4 % (11.6-14.6)
[2018-03-18 06:33] LABS: PHOSPHORUS 1.7 mg/dL (2.5-4.9)
[2018-03-18] MEDS: DOCUSATE SODIUM 100MG CAPSULE PO SCH ×2 (08:45→16:33)
[2018-03-18] MEDS: FUROSEMIDE 40MG TABLET PO SCH (08:45)
[2018-03-18] MEDS: MEGESTROL ACETATE 400 MG/10 ML UDC PO SCH (08:45)
[2018-03-18] MEDS: ASPIRIN 81MG EC TABLET PO SCH (08:45)
[2018-03-18] MEDS ORDERED: SODIUM PHOS,M-BASIC-D-BASIC 15 MM in DEXT 5% WATER 245 ML IV SCH (09:00)
[2018-03-18] MEDS: BUDESONIDE 0.5MG/2ML NEB HHN SCH (09:25)
[2018-03-18 10:19] LABS: PLATELET ESTIMATE DECREASED
[2018-03-18] MEDS ORDERED: LACTULOSE 20G/30ML UDC PO SCH (14:00)
[2018-03-18] MEDS: LEVOFLOXACIN 250MG PREMIX 50 ML IV SCH (16:32)
[2018-03-18] MEDS: ATORVASTATIN CALCIUM 20MG TABLET PO SCH (20:14)
[2018-03-18] MEDS: CARVEDILOL 3.125 MG TABLET PO SCH (20:15)
[2018-03-18] MEDS: MORPHINE SULFATE 4 MG/ML CPJ (NOT FOR IM USE) IV PRN (23:54)
[2018-03-19] VITALS (14 sets, daily range): BP systolic 94–133; BP diastolic 54–75
[2018-03-19] MEDS: IPRATROPIUM/ALBUTEROL 0.5-3(2.5)MG/3ML NEB HHN SCH ×6 (00:17→20:21)
[2018-03-19] MEDS: MORPHINE SULFATE 4 MG/ML CPJ (NOT FOR IM USE) IV PRN (05:34)
[2018-03-19 06:49] LABS: HEMATOCRIT. 37.8 % (42.0-52.0); HEMOGLOBIN. 12.1 g/dL (14.0-18.0); MEAN CORPUSCULAR HEMOGLOBIN 28.1 pg (28.0-32.0); MEAN CORPUSCULAR VOLUME 87.8 fL (80.0-94.0); MEAN PLATELET VOLUME 11.3 fl (7.4-10.4); PLATELET 116 x1000/uL (130-400); RED CELL DISTRIBUTION WIDTH 22.2 % (11.6-14.6)
[2018-03-19] MEDS: FUROSEMIDE 40MG TABLET PO SCH (08:02)
[2018-03-19] MEDS: DOCUSATE SODIUM 100MG CAPSULE PO SCH ×2 (08:03→16:11)
[2018-03-19] MEDS: ASPIRIN 81MG EC TABLET PO SCH (08:03)
[2018-03-19] MEDS: MEGESTROL ACETATE 400 MG/10 ML UDC PO SCH (08:03)
[2018-03-19] MEDS: LORAZEPAM 0.5MG TABLET PO PRN (08:06)
[2018-03-19] MEDS: CARVEDILOL 3.125 MG TABLET PO SCH ×2 (09:00→20:54)
[2018-03-19] MEDS ORDERED: TEMAZEPAM 15MG CAPSULE PO PRN (09:45)
[2018-03-19] MEDS ORDERED: LORAZEPAM 0.5MG TABLET PO PRN (11:45)
[2018-03-19] MEDS ORDERED: MORPHINE SULFATE 4 MG/ML CPJ (NOT FOR IM USE) IV PRN (11:45)
[2018-03-19] MEDS: BUDESONIDE 0.5MG/2ML NEB HHN SCH ×2 (11:51→20:21)
[2018-03-19 14:28] LABS: PLATELET ESTIMATE SLIGHTLY DECREASED
[2018-03-19] MEDS: LEVOFLOXACIN 250MG PREMIX 50 ML IV SCH (16:28)
[2018-03-19 17:19] LABS: INR 1.6; PROTHROMBIN TIME 16.8 sec (9.4-11.6)
[2018-03-19] MEDS: ATORVASTATIN CALCIUM 20MG TABLET PO SCH (20:54)
[2018-03-20] VITALS (12 sets, daily range): BP systolic 91–104; BP diastolic 55–75
[2018-03-20] MEDS: IPRATROPIUM/ALBUTEROL 0.5-3(2.5)MG/3ML NEB HHN SCH ×6 (01:04→20:28)
[2018-03-20 07:14] LABS: BASOPHILS % 0.4 % (0.0-2.0); EOSINOPHILS % 0.4 % (0.0-5.0); HEMATOCRIT. 39.2 % (42.0-52.0); LYMPHOCYTES % 12.7 % (20.0-50.0); MEAN CORPUSCULAR HEMOGLOBIN 28.5 pg (28.0-32.0); MEAN CORPUSCULAR VOLUME 85.8 fL (80.0-94.0); MEAN PLATELET VOLUME 11.3 fl (7.4-10.4); MONOCYTES % 10.5 % (2.0-8.0); PLATELET 122 x1000/uL (130-400); RED BLOOD CELL COUNT 4.56 mill/uL (4.7-6.1); RED CELL DISTRIBUTION WIDTH 21.5 % (11.6-14.6)
[2018-03-20 08:34] LABS: INR 1.8; PROTHROMBIN TIME 18.4 sec (9.4-11.6)
[2018-03-20] MEDS: BUDESONIDE 0.5MG/2ML NEB HHN SCH ×2 (08:51→20:28)
[2018-03-20] MEDS ORDERED: POTASSIUM CHLORIDE 20MEQ TABLET SR PO SCH (09:00)
[2018-03-20 09:08] LABS: IMMUNOGLOBULIN A 451 mg/dL (61-437); IMMUNOGLOBULIN G 1084 mg/dL (700-1600); IMMUNOGLOBULIN M 103 mg/dL (15-143)
[2018-03-20] MEDS: MEGESTROL ACETATE 400 MG/10 ML UDC PO SCH (10:25)
[2018-03-20] MEDS: ASPIRIN 81MG EC TABLET PO SCH (10:25)
[2018-03-20] MEDS: CARVEDILOL 3.125 MG TABLET PO SCH ×2 (10:25→20:09)
[2018-03-20] MEDS: FUROSEMIDE 40MG/4ML VIAL IVP SCH (10:25)
[2018-03-20] MEDS: DOCUSATE SODIUM 100MG CAPSULE PO SCH ×2 (10:25→17:00)
[2018-03-20] MEDS ORDERED: INSULIN REGULAR (HUMULIN R) UD 100 UNITS/ML SYR IV NR (11:30)
[2018-03-20] MEDS ORDERED: DEXTROSE 50% WATER 50ML SYRINGE IV NR (11:30)
[2018-03-20] MEDS ORDERED: SODIUM BICARBONATE 8.4% 1 MEQ/ML 50ML SYR IV NR (11:45)
[2018-03-20] MEDS ORDERED: CALCIUM GLUCONATE 1,000 MG in DEXT 5% WATER 90 ML IV NR (12:30)
[2018-03-20] MEDS: LEVOFLOXACIN 250MG TABLET PO SCH (14:00)
[2018-03-21] VITALS (10 sets, daily range): BP systolic 82–98; BP diastolic 47–63
[2018-03-21] MEDS: IPRATROPIUM/ALBUTEROL 0.5-3(2.5)MG/3ML NEB HHN SCH ×5 (00:24→16:26)
[2018-03-21 08:23] LABS: HEMATOCRIT. 36.3 % (42.0-52.0); MEAN CORPUSCULAR VOLUME 84.4 fL (80.0-94.0); MEAN PLATELET VOLUME 10.9 fl (7.4-10.4); PLATELET 119 x1000/uL (130-400)
[2018-03-21] MEDS: DOCUSATE SODIUM 100MG CAPSULE PO SCH ×2 (08:31→16:14)
[2018-03-21] MEDS: MEGESTROL ACETATE 400 MG/10 ML UDC PO SCH (08:31)
[2018-03-21] MEDS: ASPIRIN 81MG EC TABLET PO SCH (08:32)
[2018-03-21] MEDS: FUROSEMIDE 40MG/4ML VIAL IVP SCH (08:32)
[2018-03-21] MEDS: CARVEDILOL 3.125 MG TABLET PO SCH (08:32)
[2018-03-21] MEDS: BUDESONIDE 0.5MG/2ML NEB HHN SCH (08:35)
[2018-03-21] MEDS: LEVOFLOXACIN 250MG TABLET PO SCH (11:05)
[2018-03-21 11:30] LABS: PLATELET ESTIMATE DECREASED
[2018-03-21] MEDS ORDERED: POTASSIUM CHLORIDE 20MEQ/PACKET PO NR (16:00)
== END 2018-03-21 17:58 | disposition hospice, home (50) | DRG 280 ==
LOC: UNDOADMIN 10:56 → 3WST 10:59
PROVIDERS: ADMIT Internal Medicine Critical Care Medicine; ATTEND Internal Medicine Critical Care Medicine
PROC: 5A1D70Z Performance of Urinary Filtration, Intermittent, Less than 6 Hours Per Day (ICD-10-PCS; principal; 2018-03-15)
PROC: 05HY33Z Insertion of Infusion Device into Upper Vein, Percutaneous Approach (ICD-10-PCS; 2018-03-15)
PROC: B54MZZA Ultrasonography of Right Upper Extremity Veins, Guidance (ICD-10-PCS; 2018-03-15)
PROC: 5A1D70Z Performance of Urinary Filtration, Intermittent, Less than 6 Hours Per Day (ICD-10-PCS; 2018-03-16)
PROC: 5A1D70Z Performance of Urinary Filtration, Intermittent, Less than 6 Hours Per Day (ICD-10-PCS; 2018-03-19)
PROC: 5A1D70Z Performance of Urinary Filtration, Intermittent, Less than 6 Hours Per Day (ICD-10-PCS; 2018-03-20)
DX: I13.0 Hypertensive heart and chronic kidney disease with heart failure and stage 1 through stage 4 chronic kidney disease, or unspecified chronic kidney disease (principal); I21.4 Non-ST elevation (NSTEMI) myocardial infarction; I50.43 Acute on chronic combined systolic (congestive) and diastolic (congestive) heart failure; J96.00 Acute respiratory failure, unspecified whether with hypoxia or hypercapnia; N17.0 Acute kidney failure with tubular necrosis; R64 Cachexia; B17.9 Acute viral hepatitis, unspecified; C90.00 Multiple myeloma not having achieved remission; D68.9 Coagulation defect, unspecified; Z66 Do not resuscitate; R62.7 Adult failure to thrive; I27.20 Pulmonary hypertension, unspecified; D69.6 Thrombocytopenia, unspecified; I08.3 Combined rheumatic disorders of mitral, aortic and tricuspid valves; N18.3 Chronic kidney disease, stage 3 (moderate); G72.9 Myopathy, unspecified; E87.5 Hyperkalemia; E11.22 Type 2 diabetes mellitus with diabetic chronic kidney disease; E78.5 Hyperlipidemia, unspecified; I25.10 Atherosclerotic heart disease of native coronary artery without angina pectoris; I25.5 Ischemic cardiomyopathy; I49.5 Sick sinus syndrome; N40.0 Benign prostatic hyperplasia without lower urinary tract symptoms; Z95.1 Presence of aortocoronary bypass graft; Z99.2 Dependence on renal dialysis; Z99.3 Dependence on wheelchair; I25.2 Old myocardial infarction; Z95.810 Presence of automatic (implantable) cardiac defibrillator; Z99.81 Dependence on supplemental oxygen; Z79.899 Other long term (current) drug therapy
CPT/HCPCS: 36415; 36556; 71045; 74018; 76937; 80048; 80076; 82248; 82784; 82962; 83010; 83615; 83735; 84100; 84132; 84134; 85025; 85610; 85730; 86334; 93005; 93306; 93970; 94640; 97162; 97166; A6261; C1752; J0610; J1250; J1265; J1644; J1815; J1940; J1956; J2270; J3490; J7030; J7040; J7060; J7620; J7626; A4315